=== PATIENT | female | born 1955 | race Caucasian/White ===

== ENCOUNTER 2023-01-17 07:00 | Outpatient (CLI) | payer MEDICARE ==
--- NOTE | 2023-01-18 17:30 | XRAY Report ---
PROCEDURE: Lumbar Spine 2 View INDICATIONS: CHRONIC LOW BACK PAIN TECHNIQUE: 3 views of the lumbar spine were acquired. COMPARISON: None. FINDINGS: Bones: 5 [id number] vertebrae are present. There is mild levoscoliosis centered at L3 level 6 mm retrolisthesis of L1 on L2 and L2 on L3 is seen. 8 mm anterolisthesis of L4 on L5 is also noted. D egenerative endplate changes, loss of disc height and bilateral facet arthrosis throughout lumbar spi ne is seen. No vertebral body compression fractures. No suspicious bony lesions. Soft tissues: Overlying bowel gas pattern is normal. No suspicious soft tissue calcifications. IMPRESSION: Moderate degenerative disc disease throughout lumbar spine. No acute compression fracture . Mild levoscoliosis as above. Likely degenerative spondylolisthesis in lumbar spine as above. Reviewed by: Jewel Cuellar MD on 01/18/2023 5:28 PM PDT Approved by: Jewel Cuellar MD on 01/18/2023 5:28 PM PDT Station ID: [id number]
== END 2023-01-17 23:59 | disposition home or self-care (01) ==
LOC: DI.S 07:00
PROVIDERS: ATTEND Physician Assistant
DX: M51.36 Other intervertebral disc degeneration, lumbar region (principal); M43.16 Spondylolisthesis, lumbar region; M41.9 Scoliosis, unspecified